=== PATIENT | male | born 1945 | race Caucasian/White ===

== ENCOUNTER 2018-07-31 08:50 | Outpatient (CLI) | payer MEDICARE, BC ==
--- NOTE | 2018-07-31 10:18 | ULT ---
ULTRASOUND ABDOMINAL AORTA: HISTORY: Screening for abdominal aortic aneurysm. FINDINGS: Exam is limited due to bowel gas. The maximum diameter of the proximal aorta is 2.9 cm, mid aorta 2.6 cm, and distal aorta 2.8 cm. IMPRESSION: No evidence of abdominal aortic aneurysm. POS: [facility]
== END 2018-07-31 08:51 | disposition home or self-care (01) ==
LOC: SCSULT 08:50
PROVIDERS: ATTEND Family Medicine
DX: Z13.6 Encounter for screening for cardiovascular disorders (principal); Z00.00 Encounter for general adult medical examination without abnormal findings
CPT/HCPCS: 76775

== ENCOUNTER 2018-09-11 12:57 | Outpatient (CLI) | payer MEDICARE, BC ==
[~2018-09-11 12:57] MED LIST: Gadobenate Dimeglumine 529 MG/1 ML (20ML VIAL) ONE
[2018-09-11 13:35] LABS: Estimated GFR-MDRD - POC Greater than 90
--- NOTE | 2018-09-11 14:08 | MRI ---
Brain MRI with and without contrast: 09/11/2018 COMPARISON: None HISTORY: Dizziness, memory deficits, unstable gait TECHNIQUE: Multiplanar multisequence MR imaging of brain with and without contrast FINDINGS: The diffusion weighted imaging demonstrates no acute infarction. Axial gradient echo imagin g demonstrates no evidence for intracranial hemorrhage. There is mild mucosal thickening of the right frontal sinus, bilateral anterior ethmoid air cells, an d bilateral maxillary sinuses. Arterial flow voids at the axial level of the skull base appear unremarkable on the T2-weighted imagi ng. There is no midline shift, mass effect, or ventricular enlargement. No significant white matter signal abnormality. Postcontrast imaging demonstrates no abnormal enhance ment. IMPRESSION: No acute findings.
== END 2018-09-11 12:58 | disposition home or self-care (01) ==
LOC: SCSMRI 12:57
PROVIDERS: ATTEND Family Medicine
DX: R41.3 Other amnesia (principal); R42 Dizziness and giddiness
CPT/HCPCS: 70553; 82565

== ENCOUNTER 2019-05-08 15:11 | Day surgery (SDC) | payer MEDICARE, BC ==
[~2019-05-08 15:11] MED LIST changes: -Gadobenate Dimeglumine 529 MG/1 ML (20ML VIAL) ONE; +Lidocaine 1% PF 5 ML VIAL ONE; +PROPOFOL 200 MG/20 ML VIAL ONE
[2019-05-08] MEDS ORDERED: Bupivacaine PF 0.5% 30 ML VIAL ONE (17:39)
[2019-05-08] MEDS ORDERED: Bacitracin Zinc Ointment 30 gm TUBE ONE (17:40)
[2019-05-08] MEDS ORDERED: Sodium Chloride 0.9% 10 ML ONE (17:40)
[2019-05-08] MEDS ORDERED: Fentanyl 100 MCG/2 ML VIAL ONE (18:15)
[2019-05-08] MEDS ORDERED: PROPOFOL 20 ML ONE ×2 (18:19)
[2019-05-08] MEDS ORDERED: Ketorolac Tromethamine 30 MG/ML VIAL ONE (19:33)
--- NOTE | 2019-05-09 03:10 | OP ---
DATE OF PROCEDURE: 05/08/2019 PREOPERATIVE DIAGNOSES: 2 mm impression fracture, distal phalanx through the nailbed at the junction of the germinal and sterile matrix with a 1.5 cm germinal matrix and sterile matrix juncture laceration complete and displaced almost 2 mm. This includes sagittal plane and finally a 1.0 cm ulnar laceration at the left index finger. PROCEDURES PERFORMED: 1. Debridement of open fracture, distal phalanx, left index finger. 2. Debridement of wound, distal phalanx, 1 cm left index finger. 3. Closure of 1 cm wound, distal phalanx, index finger. 4. Repair of nailbed laceration, index finger, left. 5. C-arm supervision. 6. Open treatment of distal phalanx fracture without internal fixation, distal phalanx fracture. ESTIMATED BLOOD LOSS: 10 mL. TOURNIQUET TIME: 19 minutes. DESCRIPTION OF PROCEDURE: After successful general endotracheal anesthesia, the limb was prepped and draped. We gave him 10 mL of 0.5% Marcaine prior to procedure and another 10 at the metacarpophalangeal joint level at the end of procedure. He had pink circulation throughout. We then inflated the tourniquet after exsanguination of the limb to 250 mmHg pressure. We made a 1.5 cm incision at the junction of the eponychial fold and the paronychia almost 2 mm from an ulnar side of 1 cm laceration. We debrided the laceration first, elevated the nail, removed the nail plate, which was cut at the junction of sterile and germinal matrix. Once the nail plate was removed, we then saw the 2 mm sagittal plane separation with overlap and the jagged ends of both fingers at the nail bed. We debrided this with a tenotomy scissor. It was excisional technique. It included the nail bed and then we did the same for the bone with a curette in addition. We debrided all materials associated with open fracture to include one particle of dirt, irrigated with 2 L normal saline with bulb syringe pressure with antibiotics inside. Now, we had to finish both debridement of the bone and the nail as well as the wound, using technique listed above, we then completed our irrigation, and began repair. We shot radiograph on the C-arm to demonstrate that it was an impression fracture with 2 mm of depth. We then repaired the 1 cm laceration with 5-0 nylon with no undue tension. We then repaired the nailbed using a 6-0 chromic. Under loupe magnification simple interrupted sutures x7, since it was almost a complete nail bed laceration. We then released the tourniquet and obtained hemostasis. We closed the eponychial fold incision and then placed underneath the eponychial fold a debrided nail plate in a rectangular shape that was flat to hold eponychial fold and allowed the germinal matrix to regenerate before with inhibits activity. Hemostasis was excellent, digit was pink with the tourniquet released at the tip and we had no evidence of anesthetic or operative complication. A soft dressing was applied with Coban. He left the operating room without evidence of anesthetic or operative complications. Job ID: [id number]
--- NOTE | 2019-05-09 07:29 | RAD ---
XR Finger(s) Lt Min 2 View History: Thickening of the debridement with closure Comparison: None. Findings: 2 spot images were obtained from the operating room with hardware over the distal phalanx. Impression: Fluoroscopy for surgical purposes.
== END 2019-05-08 20:48 | disposition home or self-care (01) ==
LOC: SDC 15:11
PROVIDERS: ATTEND Orthopaedic Surgery Hand Surgery
PROC: 0PSV0ZZ Reposition Left Finger Phalanx, Open Approach (ICD-10-PCS; principal; 2019-05-08)
DX: S62.631B Displaced fracture of distal phalanx of left index finger, initial encounter for open fracture (principal); E11.9 Type 2 diabetes mellitus without complications; E78.5 Hyperlipidemia, unspecified; N40.0 Benign prostatic hyperplasia without lower urinary tract symptoms; Z79.84 Long term (current) use of oral hypoglycemic drugs; Z79.899 Other long term (current) drug therapy; Z87.891 Personal history of nicotine dependence; Z88.8 Allergy status to other drugs, medicaments and biological substances; W31.2XXA Contact with powered woodworking and forming machines, initial encounter
CPT/HCPCS: 76000; J0690; J1885; J2001; J2704; J3010; J3370; J3490; S0020

== ENCOUNTER 2019-06-12 07:45 | Outpatient (CLI) | payer MEDICARE, BC ==
[2019-06-12 13:12] LABS: Hemoglobin 15.9 g/dL (14.0-18.0); Mean Corpuscular HGB CONC 33.8 g/dL (32.0-36.0); Mean Corpuscular Hemoglobin 32.1 pg (27.0-31.0); Mean Corpuscular Volume 94.9 fL (78.0-98.0); Mean Platelet Volume 7.1 fL (7.4-10.4); Platelet Count 295 thou/uL (130-400); RBC Distribution Width 12.5 % (11.5-14.5); Red Blood Cell (RBC) Count 4.96 mill/uL (4.70-6.10); White Blood Cell (WBC) Count 8.3 thou/uL (4.8-10.8)
[2019-06-12 13:31] LABS: Bacteria/HPF 3+ HPF (None Seen); Bilirubin Negative (Negative); Blood, Urine Negative (Negative); Clarity Turbid (Clear); Glucose, Urine (Dipstick) Normal (Negative); Leukocyte 500 Leu/uL (Negative); Nitrite Negative (Negative); Protein, Urine (Dipstick) Negative (Neg-Trace); Squamous Epithelial 0-3 HPF (0-3); Urobilinogen Normal mg/dL (Less than 2); WBC/HPF Greater than 50 HPF (0-3)
[2019-06-12 13:54] LABS: Anion Gap 16 mmol/L (10-20); BUN (Urea Nitrogen) 12 mg/dL (8.4-25.7); Calc. Creatinine Clearance 0 mL/min (70-130); Calcium 10.4 mg/dL (7.8-10.44); Carbon Dioxide 22 mmol/L (23-31); Chloride 100 mmol/L (98-107); Estimated GFR-MDRD Greater than 90; Glucose 140 mg/dL (83-110); Sodium 134 mmol/L (136-145)
== END 2019-06-12 07:46 | disposition home or self-care (01) ==
LOC: LABBT 07:45
PROVIDERS: ATTEND Urology
DX: Z01.818 Encounter for other preprocedural examination (principal); N40.1 Benign prostatic hyperplasia with lower urinary tract symptoms; R33.9 Retention of urine, unspecified
CPT/HCPCS: 80048; 81001; 85027; 87077; 87086; 87186; 93005; 93010

== ENCOUNTER 2019-06-18 06:05 | Observation (INO) | payer MEDICARE, BC ==
[2019-06-12 10:38] VITALS: BMI 34.2
[2019-06-18] MEDS ORDERED: Fentanyl 100 MCG/2 ML VIAL ONE ×2 (07:02→08:26)
[2019-06-18] MEDS ORDERED: Levofloxacin 500 mg/D5W 100 ml Premix Bag ONE (07:08)
[2019-06-18] MEDS ORDERED: Ondansetron HCl/PF 4 MG/2 ML Vial IVP PRN (08:46)
[2019-06-18] MEDS ORDERED: Promethazine HCl 25 MG/ML VIAL IM PRN (08:46)
[2019-06-18] MEDS ORDERED: Promethazine HCl 25 MG/ML VIAL SLOW IVP PRN (08:46)
[2019-06-18] MEDS ORDERED: HYDROmorphone 2 MG/ML VIAL SLOW IVP PRN (08:46)
[2019-06-18] MEDS ORDERED: diphenhydrAMINE 50 MG/ML VIAL IVP PRN (09:04)
[2019-06-18] MEDS ORDERED: Hyoscyamine Sulfate SL 0.125 mg Tablet SL PRN (09:04)
[2019-06-18] MEDS ORDERED: HYDROcodone/Acetaminophen 5/325 mg Tablet PO PRN (09:04)
[2019-06-18] MEDS ORDERED: Ondansetron PF 4 MG/2 ML Vial IVP PRN (09:04)
[2019-06-18] MEDS ORDERED: hydrALAZINE 20 MG/ML VIAL SLOW IVP PRN (09:04)
[2019-06-18] MEDS ORDERED: Zolpidem Tartrate 5 MG TAB PO PRN (09:04)
[2019-06-18] MEDS ORDERED: Lidocaine 1% PF 5 ML VIAL ONE (09:49)
[2019-06-18] MEDS ORDERED: PROPOFOL 200 MG/20 ML VIAL ONE (09:49)
[2019-06-18] MEDS ORDERED: Ondansetron PF 4 MG/2 ML Vial ONE (09:49)
--- NOTE | 2019-06-18 10:20 | OP ---
DATE OF PROCEDURE: 06/18/2019 PREOPERATIVE DIAGNOSIS: Enlarged prostate with lower urinary tract symptoms. POSTOPERATIVE DIAGNOSIS: Enlarged prostate with lower urinary tract symptoms. PROCEDURES PERFORMED: Transurethral resection of prostate. SPECIMEN: Prostate chips. ANESTHESIA: General. COMPLICATIONS: None. BLOOD LOSS: 50 to 100 mL. DESCRIPTION OF PROCEDURE: After informed consent, the patient was taken to the operating room, transferred to the table under his own power. Anesthesia was established. A time-out was performed, showing the correct patient, site, and procedure. Preoperative antibiotics were administered. He was prepped and draped in the lithotomy position. I began by performing a digital rectal exam showing an 80 to 100 g prostate, smooth and symmetric without nodules or induration. The rigid resectoscope was then passed easily through the urethra noting a normal course and caliber of the urethra down to the prostate, noting large coapting lateral lobes and a high bladder neck with moderate median lobe. The bladder was entered and systematically examined noting no mucosal abnormalities. Bilateral ureteral orifices were identified and effluxing clear urine. He does have moderate trabeculation. I began by resecting the median lobe from the bladder neck back to the verumontanum. I then resected his left lobe from about 1 o'clock down to the median trough that I had already created. I then resected his right lobe from 11 o'clock down to the median trough. The anterior obstructing tissue was then resected. Care was taken throughout resection to avoid proceeding distal to the verumontanum to avoid injury to the sphincter. Irrigation was then turned off and hemostasis was achieved. All prostate chips were removed with the [employer]fe[employer] evacuator. The bladder was then drained and re-examined noting both ureters to be effluxing clear urine still and uninvolved with resection. There was no active bleeding, and so the scope was withdrawn, and a 22-Arabic 3-way catheter was placed with 30 mL instilled in the balloon. Continuous irrigation was connected, and at this point, the procedure was terminated. He was brought down from the lithotomy position, transferred back to his hospital bed and taken to PACU in stable condition. Irrigation was running clear as he left the room. Job ID: [id number]
[2019-06-18] MEDS ORDERED: valACYclovir 500 MG TAB PO SCH (10:30)
[2019-06-18] MEDS: Sodium Chloride 0.9% 1,000 ML IV SCH ×2 (11:06→20:29)
[2019-06-18] MEDS: Ketorolac Tromethamine 30 MG/ML VIAL IVP SCH ×2 (11:07→17:48)
[2019-06-18] MEDS: metFORMIN 500 MG TAB PO SCH (17:48)
[2019-06-18] MEDS: Famotidine/PF 20 mg/2ml Vial SLOW IVP SCH (20:31)
[2019-06-18] MEDS: Docusate 100 MG CAP PO SCH (20:31)
[2019-06-18] MEDS ORDERED: Atorvastatin Calcium 40 MG TAB PO SCH (21:00)
[2019-06-19] MEDS: Ketorolac Tromethamine 30 MG/ML VIAL IVP SCH ×3 (00:15→11:31)
[2019-06-19] MEDS: Sodium Chloride 0.9% 1,000 ML IV SCH (06:28)
[2019-06-19] MEDS ORDERED: valACYclovir 500 MG TAB PO SCH (09:00)
[2019-06-19] MEDS: metFORMIN 500 MG TAB PO SCH (09:29)
[2019-06-19] MEDS: Famotidine/PF 20 mg/2ml Vial SLOW IVP SCH (09:29)
[2019-06-19] MEDS: Docusate 100 MG CAP PO SCH (09:29)
[2019-06-19 12:03] VITALS: BP 164/77; TEMP 98.1
== END 2019-06-19 12:35 | disposition home or self-care (01) ==
LOC: SDC 06:05 → SURG B 10:21
PROVIDERS: ADMIT Urology; ATTEND Urology
PROC: 0VT08ZZ Resection of Prostate, Via Natural or Artificial Opening Endoscopic (ICD-10-PCS; principal; 2019-06-18)
DX: N40.1 Benign prostatic hyperplasia with lower urinary tract symptoms (principal); R39.14 Feeling of incomplete bladder emptying; N41.1 Chronic prostatitis; E11.9 Type 2 diabetes mellitus without complications; E78.5 Hyperlipidemia, unspecified; Z79.84 Long term (current) use of oral hypoglycemic drugs; Z79.899 Other long term (current) drug therapy; Z88.2 Allergy status to sulfonamides; Z87.891 Personal history of nicotine dependence
CPT/HCPCS: 36416; 88305; 96361; 96374; 96375; 96376; G0378; J1885; J1956; J2001; J2405; J2704; J3010; S0028

== ENCOUNTER 2019-12-06 14:37 | Outpatient (CLI) | payer MEDICARE, BC ==
--- NOTE | 2019-12-06 14:54 | RAD ---
XR Chest Pa Lat STANDARD HISTORY: Increased swelling COMPARISON: None FINDINGS: The heart size is normal. The aorta is tortuous. The lungs are well expanded without focal areas of consolidation, pneumothorax or pleural effusions. There are degenerative changes in the spine.. IMPRESSION: No radiographic evidence of acute cardiopulmonary process.
== END 2019-12-06 14:38 | disposition home or self-care (01) ==
LOC: BICRAD 14:37
PROVIDERS: ATTEND Family Medicine
DX: R61 Generalized hyperhidrosis (principal)
CPT/HCPCS: 36415; 71046; 80048; 82043; 83036; 84439; 84443; 85025; 86140

== ENCOUNTER 2020-02-21 19:00 | Outpatient (CLI) | payer MEDICARE, BC | END 2020-02-21 19:01 | disposition home or self-care (01) | LOC: SLEEPLAB 19:00 | PROVIDERS: ATTEND Family Medicine | DX: G47.33 Obstructive sleep apnea (adult) (pediatric) (principal); R53.82 Chronic fatigue, unspecified; R09.89 Other specified symptoms and signs involving the circulatory and respiratory systems; G31.84 Mild cognitive impairment of uncertain or unknown etiology; R51.9 Headache, unspecified; K21.9 Gastro-esophageal reflux disease without esophagitis; R06.83 Snoring; I11.9 Hypertensive heart disease without heart failure; E11.9 Type 2 diabetes mellitus without complications; R35.1 Nocturia; G47.00 Insomnia, unspecified; G47.10 Hypersomnia, unspecified; E66.9 Obesity, unspecified; Z68.34 Body mass index [BMI] 34.0-34.9, adult | CPT/HCPCS: 95810 ==

== ENCOUNTER 2020-03-09 14:25 | Outpatient (CLI) | payer MEDICARE, BC ==
--- NOTE | 2020-03-09 15:08 | RAD ---
RIGHT KNEE 4 VIEWS: Date: 03/09/2020 HISTORY: Knee pain. Osteoarthritis. FINDINGS: Moderate degenerative changes are noted. Loss of medial joint space. Prominent marginal osteophytes s een both medially and laterally. Narrowing and degenerative change at the patellofemoral joint. No si gnificant effusion. No fracture or acute lesion. IMPRESSION: Moderate to severe degenerative changes of the right knee. POS: [facility]
== END 2020-03-09 14:26 | disposition home or self-care (01) ==
LOC: BICRAD 14:25
PROVIDERS: ATTEND Family Medicine
DX: M17.12 Unilateral primary osteoarthritis, left knee (principal); M17.11 Unilateral primary osteoarthritis, right knee
CPT/HCPCS: 36415; 73565; 80048; 83036

== ENCOUNTER 2020-04-22 19:30 | Outpatient (CLI) | payer MEDICARE, BC | END 2020-04-22 19:31 | disposition home or self-care (01) | LOC: SLEEPLAB 19:30 | PROVIDERS: ATTEND Family Medicine | DX: G47.33 Obstructive sleep apnea (adult) (pediatric) (principal); R53.82 Chronic fatigue, unspecified; R09.89 Other specified symptoms and signs involving the circulatory and respiratory systems; G31.84 Mild cognitive impairment of uncertain or unknown etiology; K21.9 Gastro-esophageal reflux disease without esophagitis; R06.83 Snoring; R35.1 Nocturia; R51.9 Headache, unspecified; I51.9 Heart disease, unspecified; E11.9 Type 2 diabetes mellitus without complications; I10 Essential (primary) hypertension; G47.10 Hypersomnia, unspecified; E66.9 Obesity, unspecified; Z68.34 Body mass index [BMI] 34.0-34.9, adult | CPT/HCPCS: 95811 ==

== ENCOUNTER 2021-08-09 16:30 | Outpatient (CLI) | payer MEDICARE, BC | END 2021-08-09 16:31 | disposition home or self-care (01) | LOC: SLEEPLAB 16:30 | PROVIDERS: ATTEND Family Medicine | DX: G47.33 Obstructive sleep apnea (adult) (pediatric) (principal); R06.83 Snoring; R53.83 Other fatigue; R51.9 Headache, unspecified; F32.9 Major depressive disorder, single episode, unspecified; G47.00 Insomnia, unspecified; I10 Essential (primary) hypertension | CPT/HCPCS: 95800 ==

== ENCOUNTER 2021-09-13 12:37 | Outpatient (CLI) | payer MEDICARE, BC | END 2021-09-13 12:38 | disposition home or self-care (01) | LOC: EEG 12:37 | PROVIDERS: ATTEND Psychiatry & Neurology Neurology | DX: F32.1 Major depressive disorder, single episode, moderate (principal) | CPT/HCPCS: 95816; 95957 ==

== ENCOUNTER 2021-11-12 19:30 | Outpatient (CLI) | payer MEDICARE, BC | END 2021-11-12 19:31 | disposition home or self-care (01) | LOC: SLEEPLAB 19:30 | PROVIDERS: ATTEND Family Medicine | DX: G47.33 Obstructive sleep apnea (adult) (pediatric) (principal); R06.83 Snoring; G47.10 Hypersomnia, unspecified; I10 Essential (primary) hypertension; E11.9 Type 2 diabetes mellitus without complications; I48.91 Unspecified atrial fibrillation; G47.00 Insomnia, unspecified; G47.61 Periodic limb movement disorder | CPT/HCPCS: 95810 ==